=== PATIENT | male | born 1980 | race Caucasian/White ===

== ENCOUNTER 2017-05-25 09:57 | Emergency (ER) | payer OTHER ==
[~2017-05-25 09:57] MED LIST: COLC0.6T54 PO; PANT40TA PO
[2017-05-25 10:06] VITALS: TEMP 36.6; Ht 175.3 cm
[2017-05-25] MEDS ORDERED: CLR10 PO (10:27)
[2017-05-25] MEDS ORDERED: FAMO20TA11 PO (10:28)
--- NOTE | 2017-05-25 12:17 | EMERGENCY ROOM VISIT NOTE ---
History Report prepared by Christina: Isaiah Isaac Under the Supervision of: Dr. Rober Alaniz D.O. First contact with patient: 10:42 Chief Complaint: OTHER COMPLAINT Stated Complaint: NONE History of Present Illness The patient is a 37 year old male who presents to the Emergency Room for evaluation after a needle stick occurring three days ago. The patient states that he was stuck by a dirty IO needle on the palm of his left hand. He is a human resources operations coordinator and states that the needle was recently used on a patient in cardiac arrest. The individual in cardiac arrest had blood drawn which was found to be HIV and hepatitis negative. The patient does not believe the needle went deep enough to draw blood, but it pierced his glove. Source of History: patient Onset: Three days ago Quality: other (IO needle stick) Timing: other (episode) Review of Systems See HPI for pertinent positives & negatives. A total of 10 systems reviewed and were otherwise negative. Past Medical & Surgical Medical Problems: (1) Gastroesophageal reflux disease (2) Gout Family History Cancer Heart disease Lung disease Social History Smoking Status: Never Smoker Marital Status: Housing Status: lives with family Occupation Status: employed Current/Historical Medications Scheduled Allopurinol (Allopurinol), 300 MG PO DAILY Famotidine (Pepcid), 20 MG PO DAILY Loratadine (Claritin), 10 MG PO DAILY Allergies Coded Allergies: No Known Allergies (Unverified , 05/25/17) Physical Exam Vital Signs Date Time Temp Pulse Resp B/P (MAP) Pulse Ox O2 Delivery O2 Flow Rate FiO2 05/25/17 10:06 36.6 97 20 150/97 97 Room Air Physical Exam CONSTITUTIONAL/VITAL SIGNS: Reviewed / noted above. GENERAL: Non-toxic in appearance. INTEGUMENTARY: Warm, dry, and [place]. HEAD: Normocephalic. EYES: without scleral icterus or trauma. ENT/OROPHARYNX: clear and moist. LYMPHADENOPATHY/NECK: Is supple without lymphadenopathy or meningismus. RESPIRATORY: Lungs clear and equal. CARDIOVASCULAR: Regular rate and rhythm. GI/ABDOMEN: Soft and nontender. No organomegaly or pulsatile mass. No rebound or guarding. Normal bowel sounds. EXTREMITIES: Warm and well perfused. BACK: No CVA tenderness. NEUROLOGICAL: Intact without focal deficits. PSYCHIATRIC: normal affect. MUSCULOSKELETAL: Normally developed with good muscle tone. Medical Decision & Procedures Laboratory Results Test 05/25/17 11:35 Laboratory results as stated above per my review. ED Course 1126: Previous medical records were reviewed. The patient was evaluated in room C3. A complete history and physical examination was performed. Medical Decision This is a 37-year-old male who presents to the ED with a chief complaint of possible blood exposure. The patient had a patient and cardiac arrest last Thursday and was stuck gently in his right hand by the trocar of a interosseous needle through a glove. The patient came in for evaluation for this today. The source patient was HIV negative and hepatitis C negative. The patient recently received boosters for his hepatitis B immunizations. The patient denies any complaints. His exam was normal. The patient had blood work drawn here. He was felt to be stable for discharge. Impression Primary Impression: Exposure to blood or body fluid Scribe Attestation The scribe's documentation has been prepared under my direction and personally reviewed by me in its entirety. I confirm that the note above accurately reflects all work, treatment, procedures, and medical decision making performed by me. Departure Information Dispostion Home / Self-Care Referrals No Doctor, Assigned (PCP) Patient Instructions [facility] Additional Instructions Follow-up with your doctor for results of testing. Return to the emergency department for worsening or new symptoms or any concerns. You have been examined and treated today on an emergency basis only. This is not a substitute for, or an effort to provide, complete comprehensive medical care. It is impossible to recognize and treat all injuries or illnesses in a single emergency department visit. It is therefore important that you follow up closely with your doctor. Call as soon as possible for an appointment.
[2017-05-25 12:25] VITALS: BP 139/76; PULSE 88; O2SAT 99
[2017-05-25 12:36] LABS: HEPATITIS B AB POS
--- NOTE | 2017-05-25 14:20 | EMERGENCY ROOM VISIT NOTE ---
ED Visit Note First contact with patient: 10:42 The patient was told the results and emergency department.
[2017-05-25] MEDS ORDERED: ALL300 PO (21:18)
[2017-05-27 09:32] LABS: HEPATITIS BE ANTIBODY TC 556 Nonreactive; HEPATITIS BE ANTIGEN TC 555 Nonreactive
== END 2017-05-25 12:25 | disposition home or self-care (01) ==
LOC: C.EDB 09:58 → C.EDC 12:25
DX: S61.432A Puncture wound without foreign body of left hand, initial encounter (principal); W46.1XXA Contact with contaminated hypodermic needle, initial encounter; K21.9 Gastro-esophageal reflux disease without esophagitis; M10.9 Gout, unspecified; Z79.899 Other long term (current) drug therapy